=== PATIENT | female | born 1960 | race Caucasian/White ===

== ENCOUNTER 2017-04-29 15:41 | Emergency (ER) | payer OTHER ==
[~2017-04-29] VITALS: Ht 165.1 cm; Wt 85.7 kg
[2017-04-29 16:29] LABS: HEMATOCRIT 40.3 % (36.0-46.0); MCH 33.4 PG (29.0-34.0); MCHC 33.7 G/DL (30.0-36.0); MEAN PLAT.VOLUME 11.9 uM^3 (9.5-12.4); PLATELET COUNT 183 K/uL (156-360); RBC DIS.WIDTH-CV 13.4 % (11.8-14.6); RBC DIS.WIDTH-SD 48.1 % (39-53); RED BLOOD COUNT 4.07 M/uL (3.80-5.20); WHITE BLOOD COUNT 8.9 K/uL (4.1-10.2)
[2017-04-29 16:37] LABS: PROTHROMBIN TIME 11.3 SEC (10.2-12.9)
[2017-04-29 16:38] LABS: CHLORIDE 96 mEq/L (99-109); POTASSIUM 4.8 mEq/L (3.7-5.4); SODIUM 133 mEq/L (136-147)
[2017-04-29 16:39] LABS: GLUCOSE 269 mg/dL (70-99)
[2017-04-29 16:40] LABS: PTT 40.3 SEC (25-37)
[2017-04-29 16:41] LABS: ANION GAP 12 MEQ/L (2-14)
[2017-04-29 16:44] LABS: UREA NITROGEN (BUN) 30 mg/dL (9-23)
[2017-04-29 16:57] LABS: GFR ESTIMATE (CALCULATED) 19 mL/min/
[2017-04-29] MEDS ORDERED: KEFLEX500 MG PO (18:30)
[2017-04-29] MEDS ORDERED: CIPRO250 MG PO (18:30)
[2017-04-29] MEDS ORDERED: GABAPENTIN100 MG PO (18:44)
[2017-04-29] MEDS ORDERED: CLONAZEPAM1 MG PO (18:44)
[2017-04-29] MEDS ORDERED: LAMOTRIGINE150 MG PO (18:45)
[2017-04-29] MEDS ORDERED: DULOXETINE HCL60 MG PO (18:46)
[2017-04-29] MEDS ORDERED: CALCIUM PO (18:46)
[2017-04-29] MEDS ORDERED: LISINOPRIL20 MG PO (18:47)
[2017-04-29] MEDS ORDERED: LEVOTHYROXINE50 MCG PO (18:47)
[2017-04-29] MEDS ORDERED: DESYREL100 MG PO (18:48)
[2017-04-29] MEDS ORDERED: ATENOLOL50 MG PO (18:48)
[2017-04-29] MEDS ORDERED: ATORVASTATIN CA80 MG PO (18:48)
[2017-04-29] MEDS ORDERED: FLUTICASONE PRO60 ML TP (18:49)
[2017-04-29] MEDS ORDERED: FUROSEMIDE20 MG PO (18:49)
[2017-04-29] MEDS ORDERED: SYMBICORT60 INHALAT IH (18:50)
[2017-04-29] MEDS ORDERED: HUMALOG MI100 UNIT/6 SC (18:50)
[2017-04-29] MEDS ORDERED: LO-DOSE ASPIRIN81 M2 PO (18:51)
[2017-04-29] MEDS ORDERED: AMLODIPINE BESYL5 MG PO (18:51)
[2017-04-29] MEDS ORDERED: ROXICODONE5 MG PO (18:52)
[2017-04-29 19:09] VITALS: BP 129/79
== END 2017-04-29 19:10 | disposition home or self-care (01) ==
LOC: EME 15:41 → RME 15:41
PROVIDERS: Physician Assistant
DX: E11.40 Type 2 diabetes mellitus with diabetic neuropathy, unspecified (principal); S90.424A Blister (nonthermal), right lesser toe(s), initial encounter; J44.9 Chronic obstructive pulmonary disease, unspecified; I10 Essential (primary) hypertension; Z79.4 Long term (current) use of insulin; E78.5 Hyperlipidemia, unspecified; F17.200 Nicotine dependence, unspecified, uncomplicated
CPT/HCPCS: 73630; 80048; 83605; 85027; 85610; 85730; 87040; 99281; 99284

== ENCOUNTER → 2017-09-13 | Outpatient (CLI) | payer OTHER ==
[~2017-09-13] MED LIST: AMLODIPINE BESYL5 MG PO; ATENOLOL50 MG PO; ATORVASTATIN CA80 MG PO; CALCIUM PO; CIPRO250 MG PO; CLONAZEPAM1 MG PO; DESYREL100 MG PO; DULOXETINE HCL60 MG PO; FLONASE SENSIM9.9 ML BOTH NARES; FLUTICASONE PRO60 ML TP; FUROSEMIDE20 MG PO; GABAPENTIN100 MG PO; HUMALOG MI100 UNIT/6 SC; KEFLEX500 MG PO; LAMOTRIGINE150 MG PO; LEVOTHYROXINE50 MCG PO; LISINOPRIL20 MG PO; LO-DOSE ASPIRIN81 M2 PO; REFRESH PLUS1 EACH BOTH EYES; ROXICODONE5 MG PO; SYMBICORT60 INHALAT IH; ZYRTEC10 M2 PO
[2017-09-13 08:13] LABS: POINT-OF-CARE METER ID UU14174212
[2017-09-13 08:13] LABS: PROTHROMBIN TIME 11.6 SEC (10.2-12.9)
[2017-09-13 08:16] LABS: PTT 34.7 SEC (25-37)
[2017-09-13 08:26] LABS: HEMATOCRIT 38.6 % (36.0-46.0); MCH 32.7 PG (29.0-34.0); MCHC 34.2 G/DL (30.0-36.0); MCV 95.5 FL (83-99); RBC DIS.WIDTH-CV 13.1 % (11.8-14.6); RED BLOOD COUNT 4.04 M/uL (3.80-5.20); WHITE BLOOD COUNT 8.8 K/uL (4.1-10.2)
[2017-09-13 08:38] LABS: PLATELET CLUMPS PRESENT - PLATELET COUNT APPEARS ADQ.
[2017-09-13 08:44] LABS: PLATELET COUNT UNABLE TO REPORT K/uL (156-360)
== END | disposition home or self-care (01) ==
LOC: OPR 07:31 → EDSTATUS 08:00 → OPR 08:00
PROVIDERS: Internal Medicine Nephrology
DX: R80.9 Proteinuria, unspecified (principal); I12.9 Hypertensive chronic kidney disease with stage 1 through stage 4 chronic kidney disease, or unspecified chronic kidney disease; E11.22 Type 2 diabetes mellitus with diabetic chronic kidney disease; N18.9 Chronic kidney disease, unspecified; J44.9 Chronic obstructive pulmonary disease, unspecified; Z79.4 Long term (current) use of insulin
CPT/HCPCS: 77012; 82948; 85027; 85610; 85730; 88305; 88313 90; 88346 90; 88348 90; J3010